=== PATIENT | female | born 1990 | race Caucasian/White ===

== ENCOUNTER 2019-11-20 18:25 | Emergency (ER) | payer OTHER ==
[~2019-11-20] VITALS: Ht 167.6 cm; Wt 53.5 kg
[2019-11-20 18:34] VITALS: BP 111/74
--- NOTE | 2019-11-20 18:40 | NUR ---
PT SEEN AND EXAMINED BY MARY CARMEN PAGE.
--- NOTE | 2019-11-20 19:13 | NUR ---
REPORT RECEIVED FROM MITA RN FOR ROSA
--- NOTE | 2019-11-20 19:18 | NUR ---
Patient discharged to [facility] in stable condition. Written and verbal after care instructions given. Patient verbalizes understanding of instruction.
== END 2019-11-20 19:20 ==
LOC: EDBD 18:28 → ER 18:28
DX: R05 Cough (principal); F11.10 Opioid abuse, uncomplicated; F32.9 Major depressive disorder, single episode, unspecified; F41.9 Anxiety disorder, unspecified
CPT/HCPCS: 71045-TC